=== PATIENT | male | born 1935 | race Caucasian/White ===

== ENCOUNTER 2022-08-11 09:15 | Outpatient (CLI) | payer MEDICARE | END 2022-08-11 09:16 | disposition home or self-care (01) | LOC: CSHWCC 09:15 | PROVIDERS: ATTEND Nurse Practitioner Family | DX: S31.809D Unspecified open wound of unspecified buttock, subsequent encounter (principal) | CPT/HCPCS: 97139; G0463; 99203 ==

== ENCOUNTER 2022-09-08 09:44 | Outpatient (CLI) | payer MEDICARE | END 2022-09-08 09:45 | disposition home or self-care (01) | LOC: CSHWCC 09:44 | PROVIDERS: ATTEND Nurse Practitioner Family | DX: S31.809D Unspecified open wound of unspecified buttock, subsequent encounter (principal) | CPT/HCPCS: 97139; G0463; 99212 ==

== ENCOUNTER 2022-10-06 09:55 | Outpatient (CLI) | payer MEDICARE | END 2022-10-06 09:56 | disposition home or self-care (01) | LOC: CSHWCC 09:55 | PROVIDERS: ATTEND Nurse Practitioner Family | DX: S31.809D Unspecified open wound of unspecified buttock, subsequent encounter (principal) ==

== ENCOUNTER 2022-11-10 10:25 | Outpatient (CLI) | payer MEDICARE | END 2022-11-10 10:26 | disposition home or self-care (01) | LOC: CSHWCC 10:25 | PROVIDERS: ATTEND Nurse Practitioner Family | DX: S31.809D Unspecified open wound of unspecified buttock, subsequent encounter (principal) ==

== ENCOUNTER 2023-01-26 11:21 | Outpatient (CLI) | payer MEDICARE | END 2023-01-26 11:22 | disposition home or self-care (01) | LOC: CSHWCC 11:21 | PROVIDERS: ATTEND Nurse Practitioner Family | DX: S31.809D Unspecified open wound of unspecified buttock, subsequent encounter (principal) | CPT/HCPCS: 97139; G0463; 99212 ==

== ENCOUNTER 2023-03-16 14:45 | Outpatient (CLI) | payer MEDICARE | END 2023-03-16 14:46 | disposition home or self-care (01) | LOC: CSHWCC 14:45 | PROVIDERS: ATTEND Nurse Practitioner Family | DX: S31.809D Unspecified open wound of unspecified buttock, subsequent encounter (principal) | CPT/HCPCS: 97139; G0463; 99212 ==

== ENCOUNTER 2023-05-11 09:43 | Outpatient (CLI) | payer MEDICARE | END 2023-05-11 09:44 | disposition home or self-care (01) | LOC: CSHWCC 09:43 | PROVIDERS: ATTEND Physician Assistant | DX: S31.809D Unspecified open wound of unspecified buttock, subsequent encounter (principal) | CPT/HCPCS: 97597 ==

== ENCOUNTER 2023-05-18 11:15 | Outpatient (CLI) | payer MEDICARE | END 2023-05-18 11:16 | disposition home or self-care (01) | LOC: CSHWCC 11:15 | PROVIDERS: ATTEND Preventive Medicine Undersea and Hyperbaric Medicine | DX: L89.154 Pressure ulcer of sacral region, stage 4 (principal); S31.809D Unspecified open wound of unspecified buttock, subsequent encounter | CPT/HCPCS: 99212; G0463 ==

== ENCOUNTER 2023-06-01 10:56 | Outpatient (CLI) | payer MEDICARE | END 2023-06-01 10:57 | disposition home or self-care (01) | LOC: CSHWCC 10:56 | PROVIDERS: ATTEND Physician Assistant | DX: S31.809D Unspecified open wound of unspecified buttock, subsequent encounter (principal) | CPT/HCPCS: 97602; 99212; G0463 ==

== ENCOUNTER 2023-06-15 11:08 | Outpatient (CLI) | payer MEDICARE | END 2023-06-15 11:09 | disposition home or self-care (01) | LOC: CSHWCC 11:08 | PROVIDERS: ATTEND Physician Assistant | DX: S31.809D Unspecified open wound of unspecified buttock, subsequent encounter (principal); S00.00XD Unspecified superficial injury of scalp, subsequent encounter | CPT/HCPCS: 99213; G0463 ==